=== PATIENT | male | born 1990 | race Caucasian/White ===

== ENCOUNTER 2017-10-14 04:41 | Emergency (ER) | payer SELFPAY ==
[~2017-10-14] VITALS: Ht 170.2 cm; Wt 77.1 kg
--- NOTE | 2017-10-14 06:10 | NUR ---
Patient discharged to home in stable conditon. Written and verbal after care instructions given. Patient verbalizes understanding of instructions. Patient left in wheelchair with all personal belongings.
[2017-10-14 06:26] VITALS: BP 122/82
== END 2017-10-14 06:10 | disposition home or self-care (01) ==
LOC: ER 04:46
DX: S89.92XA Unspecified injury of left lower leg, initial encounter (principal); S89.91XA Unspecified injury of right lower leg, initial encounter; V48.6XXA Car passenger injured in noncollision transport accident in traffic accident, initial encounter; Y93.89 Activity, other specified; Y92.410 Unspecified street and highway as the place of occurrence of the external cause; Y99.8 Other external cause status
CPT/HCPCS: 29505; 72040; 73564; 99284; A4663